=== PATIENT | male | born 1970 | race Caucasian/White ===

== ENCOUNTER 2021-10-10 06:08 | Outpatient (REF) | payer OTHER, SELFPAY ==
[2021-10-10 11:42] LABS: Hematocrit 45.5 % (42.0-52.0); Hemoglobin 15.4 g/dl (14.0-18.0); Mean Corpuscular HGB Conc 33.8 g/dl (31.0-36.0); Mean Corpuscular Hemoglobin 30.9 pg (27.0-33.0); Mean Corpuscular Volume 91.2 fL (80.0-98.0); Mean Platelet Volume 10.8 fL (9.4-12.4); Platelet Count 260 X10*3/uL (160-400); Red Blood Count 4.99 X10*6/uL (4.60-5.80); Red Cell Distribution Width 12.1 % (11.0-16.0)
[2021-10-10 12:12] LABS: Estimated Average Glucose 94 mg/dL; Hemoglobin A1c % 4.9 %
[2021-10-10 12:26] LABS: Alanine Aminotransferase 91 U/L (0-40); Albumin Level 4.4 g/dL (3.5-5.0); Alkaline Phosphatase 75 U/L (39-117); Anion Gap 14 (12-20); Aspartate Amino Transferase 61 U/L (5-37); Bilirubin Total 2.3 mg/dL (0.0-1.0); Blood Urea Nitrogen 13 mg/dL (9-16); Calcium 9.6 mg/dL (8.4-10.2); Carbon Dioxide 26 mmol/L (22-29); Chloride 102 mmol/L (96-108); Cholesterol 219 mg/dL; Estimated Glomerular Filt Rate > 60; Glucose Fasting 83 mg/dL (60-99); HDL Cholesterol 37 mg/dL; LDL Cholesterol Calculated 161 mg/dl; Potassium 4.1 mmol/L (3.3-5.1); Sodium 138 mmol/L (135-145); Triglycerides 105 mg/dL
[2021-10-10 12:48] LABS: TSH reflex Free T4 3.55 uIU/mL (0.32-4.0)
== END 2021-10-10 06:09 | disposition home or self-care (01) ==
LOC: HO.HMGCLDS 06:08
PROVIDERS: Visit Provider Physician Assistant
DX: E03.9 Hypothyroidism, unspecified (principal); Z13.220 Encounter for screening for lipoid disorders; Z13.1 Encounter for screening for diabetes mellitus
CPT/HCPCS: 36415; 80053; 80061; 83036; 84443; 85027

== ENCOUNTER → 2021-10-11 15:45 | Outpatient (REF) | payer OTHER, SELFPAY ==
--- NOTE | ~2021-10-11 | XR_ITS ---
EXAMINATION: XR CERVICAL SPINE CLINICAL INFORMATION: R20.0 - Anesthesia of skin. Cervical tingling. COMPARISON: Radiographs cervical spine 06/17/2014. TECHNIQUE: Cervical spine is imaged in 3 views. FINDINGS: There is normal cervical lordosis. Vertebral bodies are normal in height. There is no cervical vertebral compression, spondylolisthesis, destructive process, or prevertebral soft tissue swelling. The odontoid appears intact. There is interval mild disc narrowing C4-C5 and C5-C6. Anterior vertebral spurring is seen at multiple levels with mild posterior spurring lower cervical spine. There is small incidental focal nuchal ligament mineralization at level of C6. XR/XR cervical spine 3V IMPRESSION: Mild degenerative disc changes C4-C5 and C5-C6.
--- NOTE | ~2021-10-11 | XR_ITS ---
EXAMINATION: XR SHOULDER, LEFT CLINICAL INFORMATION: R20.0 - Anesthesia of skin COMPARISON: None TECHNIQUE: Left shoulder is imaged in 4 views. of the left shoulder. FINDINGS: No fracture or dislocation or destructive process. The glenohumeral joint is unremarkable. The acromioclavicular alignment is normal. There is mild inferior spurring distal left clavicle. There are some calcifications adjacent to the posterior proximal humeral shaft, likely calcific tendinosis or deltoid insertion. XR/XR shoulder LT min 2V IMPRESSION: -Mild inferior spurring acromioclavicular joint. -Small focal calcific tendinosis in region of deltoid insertion upper humerus.
--- NOTE | 2021-10-11 15:50 | ECG_ITS ---
Test Reason : PARASTHESIA SKIN Blood Pressure : / mmHG Vent. Rate : 073 BPM Atrial Rate : 073 BPM P-R Int : 132 ms QRS Dur : 124 ms QT Int : 394 ms P-R-T Axes : 059 081 037 degrees QTc Int : 434 ms Normal sinus rhythm Right bundle branch block Abnormal ECG No previous ECGs available Referred By: Isaias aVlle Electronically Signed By:YENNI JACOBSON
[2021-10-11 16:30] LABS: C Reactive Protein 0.29 mg/dL (< or = 0.50)
[2021-10-11 16:39] LABS: Troponin-I High Sensitivity < 3.5 ng/L (<3.5-35.0)
[2021-10-11 16:55] LABS: Vitamin D 25-OH Total 39.9 ng/mL (>30)
[2021-10-11 17:05] LABS: Erythrocyte Sedimentation Rate 22 MM/HR (0-15)
[2021-10-11 17:06] LABS: Folate 17.1 ng/mL (> or = 4.0); Vitamin B12 677 pg/mL (200-900)
[2021-10-11 17:27] LABS: Prostate Specific Antigen Scr 0.29 ng/mL (<0.05-4.0)
[2021-10-17 21:51] LABS: HSV 1 IgM IFA Negative (Negative); HSV 2 IgM IFA Negative (Negative)
== END ==
LOC: HO.CARD 15:45
PROVIDERS: PCP Internal Medicine; Visit Provider Internal Medicine
DX: Z00.00 Encounter for general adult medical examination without abnormal findings (principal); Z12.5 Encounter for screening for malignant neoplasm of prostate; R20.0 Anesthesia of skin; R20.2 Paresthesia of skin; N50.89 Other specified disorders of the male genital organs; E55.9 Vitamin D deficiency, unspecified
CPT/HCPCS: 36415; 72040; 73030; 82306; 82607; 82746; 84153; 84484; 85652; 86140; 86695; 86696; 93005

== ENCOUNTER → 2021-12-11 15:48 | Outpatient (BNVA) | payer OTHER, SELFPAY | PROVIDERS: PCP Internal Medicine; Referring Provider Internal Medicine; Visit Provider Nurse Practitioner | DX: Z12.11 Encounter for screening for malignant neoplasm of colon (principal) ==

== ENCOUNTER 2022-02-25 08:01 | Outpatient (REF) | payer OTHER, SELFPAY ==
[2022-02-25 12:02] LABS: Alanine Aminotransferase 70 U/L (0-40); Albumin Level 4.3 g/dL (3.5-5.0); Alkaline Phosphatase 76 U/L (39-117); Anion Gap 13 (12-20); Aspartate Amino Transferase 47 U/L (5-37); Bilirubin Total 1.5 mg/dL (0.0-1.0); Blood Urea Nitrogen 11 mg/dL (9-16); Calcium 9.2 mg/dL (8.4-10.2); Carbon Dioxide 29 mmol/L (22-29); Chloride 105 mmol/L (96-108); Cholesterol 170 mg/dL; Estimated Glomerular Filt Rate > 60; Glucose Fasting 102 mg/dL (60-99); HDL Cholesterol 38 mg/dL; LDL Cholesterol Calculated 100 mg/dl; Potassium 4.5 mmol/L (3.3-5.1); Sodium 142 mmol/L (135-145); Triglycerides 161 mg/dL
[2022-02-25 12:06] LABS: Free T4 (Free Thyroxine) 0.99 ng/dL (0.71-1.85); Thyroid Stimulating Hormone 1.52 uIU/mL (0.32-4.0)
== END 2022-02-25 08:02 | disposition home or self-care (01) ==
LOC: HO.HMGCLDS 08:01
PROVIDERS: PCP Internal Medicine; Visit Provider Internal Medicine
DX: E78.00 Pure hypercholesterolemia, unspecified (principal); E03.9 Hypothyroidism, unspecified
CPT/HCPCS: 36415; 80053; 80061; 84439; 84443

== ENCOUNTER 2022-05-29 06:22 | Outpatient (REF) | payer OTHER, SELFPAY ==
[2022-05-29 12:52] LABS: TSH reflex Free T4 2.52 uIU/mL (0.32-4.0)
[2022-05-29 13:15] LABS: Alanine Aminotransferase 102 U/L (0-40); Albumin Level 4.5 g/dL (3.5-5.0); Alkaline Phosphatase 74 U/L (39-117); Anion Gap 17 (12-20); Aspartate Amino Transferase 49 U/L (5-37); Bilirubin Total 2.2 mg/dL (0.0-1.0); Blood Urea Nitrogen 12 mg/dL (9-16); Calcium 9.5 mg/dL (8.4-10.2); Carbon Dioxide 23 mmol/L (22-29); Chloride 103 mmol/L (96-108); Cholesterol 212 mg/dL; Estimated Glomerular Filt Rate > 60; Glucose Fasting 91 mg/dL (60-99); HDL Cholesterol 45 mg/dL; LDL Cholesterol Calculated 152 mg/dl; Potassium 3.8 mmol/L (3.3-5.1); Sodium 139 mmol/L (135-145); Total Protein 6.9 g/dL (6.5-8.0); Triglycerides 76 mg/dL
== END 2022-05-29 06:23 | disposition home or self-care (01) ==
LOC: HO.HMGCLDS 06:22
PROVIDERS: PCP Internal Medicine; Visit Provider Nurse Practitioner Family
DX: E03.9 Hypothyroidism, unspecified (principal); E78.00 Pure hypercholesterolemia, unspecified; R79.89 Other specified abnormal findings of blood chemistry
CPT/HCPCS: 36415; 80053; 80061; 84443

== ENCOUNTER → 2022-08-26 13:44 | Outpatient (BNVA) | payer OTHER, SELFPAY | PROVIDERS: PCP Internal Medicine; Referring Provider Internal Medicine; Visit Provider Internal Medicine | DX: I45.10 Unspecified right bundle-branch block (principal) | CPT/HCPCS: 93005 ==

== ENCOUNTER → 2022-09-03 14:45 | Outpatient (REF) | payer OTHER, SELFPAY ==
--- NOTE | 2022-09-03 14:49 | CA_ITS ---
Transthoracic Echocardiogram Patient (Last, First, Middle): Gary Mcintosh, Gender: Male Date of : 1970 Age: 52 Procedure Date: 09/03/2022 Procedure Type: Transthoracic Echocardiogram Location: OP Height: 160.02 cm Weight: 65.77 kg BSA: 1.69 m2 Heart Rate: bpm BP: 12 / 66 mmHg Construction Rep: Referring MD: Taurus Coornel MD Pattern Wheel Maker: Justin Prasad MD Symptoms: I45.10 - Unspecified right bundle-branch block Study Quality: Adequate ECG Rhythm: Sinus Conclusions: - 1. Normal LV systolic function with impaired relaxation filling pattern 2. Normal cardiac valvular Doppler 3. Normal RV systolic pressure 4. No gross pericardial effusion Findings Left Ventricle Normal left ventricular size, thickness, and systolic function. The visually estimated ejection fraction is between 60-65%. Spectral Doppler is indicative of an impaired relaxation filling pattern. E/E prime ratio is between 8 and 15 consistent with indeterminate filling pressures. Right Ventricle Normal right ventricular cavity size and systolic function. Atria Both atria are normal in size. Aortic Valve Normal aortic valve structure and function. There is no aortic valve stenosis. There is no aortic valve regurgitation. Mitral Valve Normal mitral valve structure and function. There is trace mitral valve regurgitation. There is no mitral valve stenosis. Pulmonic Valve The pulmonic valve is likely normal. Tricuspid Valve Normal tricuspid valve structure. There is trace tricuspid valve regurgitation. The right ventricular systolic pressure is normal. The right ventricular systolic pressure is 26 mmHg. Normal right atrial pressure. There is no evidence of pulmonary hypertension. Great Vessels All visible segments of the aorta are normal in size. The pulmonary artery was not well visualized. Venous The inferior vena cava is normal in size and collapses greater than 50% with inspiration. Pericardium/Pleural There is no evidence of pericardial effusion. Prior Study Comparison No prior study available for comparison. Measurements 2D Linear Measurements IVSd: 1.08 0.6-0.9/0.6-1.0 cm LVIDd: 3.70 3.9-5.3/4.2-5.9 cm LVIDd Index: 2.19 2.4-3.2/2.2-3.1 cm/m2 LVIDs: 2.58 2.0-3.6 cm LVPWd: 1.16 0.7-1.1 cm Ao Root: 3.20 2.1-3.5 cm LA Diam: 3.20 2.7-3.8/3.0-4.0 cm LAIDs Index: 1.89 1.5-2.3 cm/m2 LV Mass: 165.29 67-162/88-224 g LV Mass Index: 97.80 43-95/49-115 g/m2 LVOT Diam: 2.00 3.0+(-)1.3 cm 2D Systolic Function EF 4C: 66.40 >55% EF 2C: 62.90 >55% EF BiP: 63.90 >55% Mitral Valve MV Pk E: 0.78 MV PK A: 1.22 MV Decel Time: 135.00 E/A: 0.60 E'Lateral: 6.31 E'Medial: 6.74 E/E' Med: 11.50 E/E' Lat: 12.30 PHT: 40.00 MVA PHT: 5.50 Decel Irwin: 5.76 Aortic Valve AoV Pk Leon: 1.98 AoV Mn Leon: 1.23 AoV VTI: 0.36 AoV Pk Grad: 16.00 Aov Mn Grad: 7.00 SAMMIE Cont.VTI: 2.32 LVOT LVOT Pk Leon: 1.43 LVOT Mn Leon: 0.87 LVOT VTI: 0.26 LVOT Pk Grad: 8.00 LVOT Mn Grad: 4.00 LVOT Diam: 2.00 LVOT Area: 3.14 Diastolic Function MV Pk E: 0.78 MV Pk A: 1.22 E/A: 0.60 E'Medial: 6.74 E/E' Med: 11.50 E' Laterial: 6.31 E/E' Lat: 12.30 Right Ventricle TAPSE (mm): 24.90 TVS' Leon: 12.20 Tricuspid Valve TR Pk Leon: 2.40 TR Pk Grad: 23.00 RA Press: 3.00 RVSP: 26.00 Great Vessels Aorta Ao Root-2D: 3.20 2.0-3.7 cm Ao Asc: 3.10 2.1-3.4 cm Pulmonary Valve PV Pk Leon: 1.31 Peak PV Grad: 7.00 Updated in Other Vendor System with Status of Final Justin Prasad MD electronically signed on 09/05/2022 10:46:08 AM with status of Final
== END ==
LOC: HO.CARD 14:45
PROVIDERS: PCP Internal Medicine; Visit Provider Internal Medicine
DX: I45.10 Unspecified right bundle-branch block (principal)
CPT/HCPCS: 93306

== ENCOUNTER 2022-09-30 10:11 | Day surgery (SDC) | payer OTHER, SELFPAY ==
--- NOTE | 2022-09-30 10:09 | HO.ANESPROP2 ---
[facility] Active Problems Active Problems: All Active Problems (Updated 09/25/22 @ 16:23 by Maria A Dailey RN) Annual physical exam (Acute) Left upper extremity numbness (Acute) Paresthesia of left upper extremity (Acute) Genital lesion, male (Acute) Vitamin D deficiency (Acute) Colon cancer screening (Acute) Family history of polyps in the colon (Acute) Right bundle branch block (Acute) Hypertension (Acute) Elevated blood pressure reading (Acute) Incomplete RBBB (Acute) Elevated LFTs (Acute) Overweight (BMI 25.0-29.9) (Acute) Acquired hypothyroidism (Acute) Pure hypercholesterolemia (Acute) Past Medical History Medical History (Updated 09/25/22 @ 16:23 by Maria A Dailey RN) Acquired hypothyroidism Elevated LFTs Overweight (BMI 25.0-29.9) Pure hypercholesterolemia RBBB Family History Family History Father Liver cancer Mother Diabetes Family history of problems with anesthesia: No Surgical History Surgical History No pertinent past surgical history History of Problems with Anesthesia: No Social History Social History Housing: House Alcohol intake: current Alcohol intake frequency: a few times a week Patient Tobacco Use Status: Never used Tobacco Tobacco use type: Cigarette e-Cigarette/Vaping Use: Never Used Use of substances other than those prescribed or required for medical reasons: Yes Substance Use Type: Marijuana Substance Use Type Other:: smoking Substance Use Frequency: Daily Are you DNR?: No Advance Directives: No Advance Directives Information Provided: Yes service: No Current occupational status: employed Cognitive needs: No Hearing needs: No Vision needs: Yes Meds Allergies Allergy/AdvReac Type Severity Reaction Status Date / Time No Known Allergies Allergy Verified 09/26/22 10:45 [No Known Allergies*] Active Medications: Current Medications Lactated Ringer's (Lr) 1,000 mls @ 50 mls/hr IVCONT .Q20H [facility] Home Medications Medication Instructions Recorded Confirmed Last Taken Type albuterol sulfate 90 mcg/actuation 2 puff inhalation Q6H PRN Wheezing 07/29/20 09/25/22 Unknown History aerosol inhaler multivit with minerals-iron 18 1 tab PO DAILY 12/11/21 09/25/22 Unknown History mg-folic ac 400 mcg-vit K 25 mcg tablet (Adults Multivitamin) Exam Exam Date and Time: September 30, 2022 [id number] Airway Mallampati Class: II TM Dist: >3cm Neck ROM: Full Heart: rrr Lungs: cta Assessment and Plan Assessment Anesthesia Assessment: Anesthesia Plan Discussed and Chart Reviewed Final Anesthetic Review Family History of Problems with Anesthesia: No History of Problems with Anesthesia: No NPO: Yes ASA Class: II Final Preanesthetic Review: No Changes in Pt Med Stat, Meds/Allgs Chart Reviewed and Consent Obtained/Reviewed Patient Risk: Intermediate Procedure Risk: Intermediate Anesthetic Plan Anesthetic Plan: MAC: Disposition: Standard PACU
[2022-09-30 10:45] VITALS: BMI 25.7
--- NOTE | 2022-09-30 10:59 | MHC.SHP ---
Pre-Procedural Eval Section A Date of Service: 09/30/22 Section B Chief Complaint: Family history of colonic polyps,screening Relevant Family History (Specify if Yes): Yes Relevant Social History: None Present Medications: see Short Stay Collaborative assessment Medical History: Significant History (Acquired hypothyroidism Elevated LFTs Overweight (BMI 25.0-29.9) Pure hypercholesterolemia Vitamin D deficiency) History of Previous Operations: No relevant previous surgery Allergies: Allergies Allergy/AdvReac Type Severity Reaction Status Date / Time No Known Allergies Allergy Verified 09/26/22 10:45 [No Known Allergies*] Review of Systems Sugical H&P ROS: Negative: Constitution, Cardiovascular, Respiratory and Gastrointestinal Exam Surgical H&P Exam: Normal: Heart, Normal: Lungs, Normal: Extremities and Normal: Abdomen Plan Diagnosis/Plan: Unchanged I have reviewed the history and physical and performed a pertinent physical examination on my patient. No changes have occurred unless specified. Time Spent With Patient Time: Total time managing care of this patient today ____ minutes.
[2022-09-30 11:00] VITALS: BP 132/82; PULSE 73; RESP 16; TEMP 36.6; O2SAT 98
--- NOTE | 2022-09-30 11:04 | P.BOP_ITS ---
Brief Operative Note Date of Service: 09/30/22 Pre-op diagnosis: Colon cancer screening, family history of colon polyps Post-op diagnosis: other (Colon polyps, diverticulosis, hemorrhoids) Procedure: COLONOSCOPY TILL CECUM WITH BIOPSIES AND SNARE POLYPECTOMY Surgeon: Alison Lau MD Anesthesia: MAC Was an Leadership Development Manager used for this Procedure?: Yes Leadership Development Manager: Flip Patterson Estimated blood loss (mL): 0 Pathology: other (A) Polyp Sigmoid Colon B) Polyp Sigmoid Colon 25cm) Condition: stable Disposition: PACU
--- NOTE | 2022-09-30 11:04 | W.PM.OPN ---
Operative Note Operative Note Date of Service: 09/30/22 Narrative: COLONOSCOPY TILL CECUM WITH BIOPSIES AND SNARE POLYPECTOMY Indication:? Colon cancer screening Endoscopist:? Alison Lau MD Anesthesia Provider:?Dr Gomez Anesthesia type:?MAC Consent: Indications for the procedure and potential complications of bleeding, perforation, reaction to medications and missed diagnosis were discussed with the patient and informed consent was obtained. Instrument: Olympus PCF H 190 L variable stiffness pediatric colonoscope Monitoring: Vital signs and clinical assessment, intermittent blood pressure monitoring, continuous EKG monitoring, Pulse oximetry and Carbon Dioxide monitoring were done throughout the procedure. Please see anesthesia flowsheet. Colon withdrawl time was 17 minutes. Procedure: The patient was placed in the left lateral decubitis position and pre-procedure medications were administered. After a digital rectal examination of the ano-rectum, the video colonoscope was inserted into the rectum and advanced through the colon to the cecum. The colonoscope was slowly withdrawn in a retrograde panoramic fashion and the colon mucosa was carefully examined including a retroflexed view of the rectum. Findings and interventions are described below. Procedure Difficulty: Without difficulty Findings: Terminal Ileum: Not evaluated Cecum: Normal Ascending Colon: Moderate scattered diverticulosis throughout the colon Transverse Colon: Moderate scattered diverticulosis throughout the colon Descending Colon: Moderate scattered diverticulosis throughout the colon Sigmoid Colon: A 3-4 mm diminutive appearing polyp removed with a cold biopsy. A 7 to 8 mm diminutive appearing polyp at 25 cm removed with a cold snare. Moderate diverticulosis Rectum: Normal Ano-rectum: Small internal hemorrhoids Colon preparation: Excellent Impression and Post Procedure Diagnosis: Colonoscopy Findings: Two small polyps removed Moderate diverticulosis seen in the entire colon Small hemorrhoids on retroflexed exam. Plan: Await pathology results Patient has an appointment on 10/15/22 in the GI Clinic with Ashlie Melgoza NP . Repeat Colonoscopy interval based on path results - in 5 years if polyps are adenomatous and due to family hx of colon polyps. Above findings were reviewed with the patient and colon polyps and diverticulosis handouts were given in the discharge area
[2022-09-30] MEDS: Lactated Ringers 1,000 ML 50 ML IVCONT (11:09)
[2022-09-30 11:43] VITALS: BP 91/55; PULSE 60; RESP 15; TEMP 36.2; O2SAT 98
[2022-09-30 11:58] VITALS: BP 120/91; PULSE 60; RESP 16; TEMP 36.2; O2SAT 99
== END 2022-09-30 12:46 | disposition home or self-care (01) ==
PROVIDERS: PCP Internal Medicine; Visit Provider Internal Medicine Gastroenterology
PROC: 0DJD8ZZ Inspection of Lower Intestinal Tract, Via Natural or Artificial Opening Endoscopic (ICD-10-PCS; CPT 45378; principal; 2022-09-30 11:00)
DX: Z12.11 Encounter for screening for malignant neoplasm of colon (principal); Z83.71 Family history of colonic polyps; K63.5 Polyp of colon; K57.30 Diverticulosis of large intestine without perforation or abscess without bleeding; K64.8 Other hemorrhoids; E78.00 Pure hypercholesterolemia, unspecified; E03.9 Hypothyroidism, unspecified; E55.9 Vitamin D deficiency, unspecified; I45.10 Unspecified right bundle-branch block; R79.89 Other specified abnormal findings of blood chemistry; E66.9 Obesity, unspecified; Z68.25 Body mass index [BMI] 25.0-25.9, adult; Z79.899 Other long term (current) drug therapy; F12.90 Cannabis use, unspecified, uncomplicated
CPT/HCPCS: 45385; 45380; 88305

== ENCOUNTER 2022-12-06 06:06 | Outpatient (REF) | payer OTHER, SELFPAY ==
[2022-12-06 12:12] LABS: Alanine Aminotransferase 71 U/L (0-40); Albumin Level 4.1 g/dL (3.5-5.0); Alkaline Phosphatase 65 U/L (39-117); Anion Gap 10 (12-20); Aspartate Amino Transferase 49 U/L (5-37); Bilirubin Total 1.6 mg/dL (0.0-1.0); Blood Urea Nitrogen 12 mg/dL (9-16); Calcium 8.9 mg/dL (8.4-10.2); Carbon Dioxide 27 mmol/L (22-29); Chloride 107 mmol/L (96-108); Cholesterol 184 mg/dL; Estimated Glomerular Filt Rate > 60; Glucose Fasting 87 mg/dL (60-99); HDL Cholesterol 39 mg/dL; LDL Cholesterol Calculated 127 mg/dl; Sodium 140 mmol/L (135-145); Total Protein 6.3 g/dL (6.5-8.0); Triglycerides 94 mg/dL
[2022-12-06 12:19] LABS: Free T4 (Free Thyroxine) 1.03 ng/dL (0.71-1.85); Thyroid Stimulating Hormone 1.96 uIU/mL (0.32-4.0); Vitamin D 25-OH Total 31.2 ng/mL (>30)
== END 2022-12-06 06:07 | disposition home or self-care (01) ==
LOC: HO.HMGCLDS 06:06
PROVIDERS: PCP Internal Medicine; Visit Provider Internal Medicine
DX: E03.9 Hypothyroidism, unspecified (principal); E55.9 Vitamin D deficiency, unspecified; E78.00 Pure hypercholesterolemia, unspecified
CPT/HCPCS: 36415; 80053; 80061; 82306; 84439; 84443

== ENCOUNTER 2023-12-05 06:12 | Outpatient (REF) | payer OTHER, SELFPAY ==
[2023-12-05 10:35] LABS: Appearance Urine Turbid; Color Urine Yellow; Glucose Urine UA Negative (Negative); Leukocyte Esterase Urine Negative (Negative); Nitrite Urine Negative (Negative); PH 5.5 (5.0-9.0); Urine Blood Negative (Negative); Urine Ketones Negative (Negative); Urine Protein Negative (Neg-Trace)
[2023-12-05 10:39] LABS: MANUAL DIFF FLAG NO
[2023-12-05 10:54] LABS: Basophils Absolute Auto 0.1 X10*3/uL (0.0-0.2); Eosinophils Absolute Auto 0.4 X10*3/uL (0.0-0.4); Eosinophils Percent Auto 5.3 % (0-4); Hematocrit 44.6 % (42.0-52.0); Hemoglobin 15.3 g/dl (14.0-18.0); Imm Gran Abs Auto 0.02 X10*3/uL (0.00-0.03); Imm Gran Pct Auto 0.3 % (0.0-0.4); Lymphocytes Absolute Auto 2.7 X10*3/uL (1.2-4.9); Lymphocytes Percent Auto 39.5 % (20-40); Mean Corpuscular HGB Conc 34.3 g/dl (31.0-36.0); Mean Corpuscular Hemoglobin 30.5 pg (27.0-33.0); Mean Platelet Volume 11.6 fL (9.4-12.4); Monocytes Absolute Auto 0.6 X10*3/uL (0.1-1.2); Monocytes Percent Auto 8.6 % (2-11); Neutrophils Absolute Auto 3.1 x10*3/uL (2.0-8.3); Neutrophils Percent Auto 45.3 % (45-73); Platelet Count 227 X10*3/uL (160-400); Red Blood Count 5.01 X10*6/uL (4.60-5.80); Red Cell Distribution Width 12.1 % (11.0-16.0); White Blood Count 6.8 X10*3/uL (4.8-10.8)
[2023-12-05 11:22] LABS: Prostate Specific Antigen Scr 0.37 ng/mL (<0.05-4.0)
[2023-12-05 11:25] LABS: Alanine Aminotransferase 89 U/L (0-40); Albumin Level 4.3 g/dL (3.5-5.0); Alkaline Phosphatase 60 U/L (39-117); Anion Gap 13 (12-20); Aspartate Amino Transferase 56 U/L (5-37); Bilirubin Total 0.8 mg/dL (0.0-1.0); Blood Urea Nitrogen 13 mg/dL (9-16); Calcium 9.6 mg/dL (8.4-10.2); Carbon Dioxide 26 mmol/L (22-29); Chloride 106 mmol/L (96-108); Cholesterol 209 mg/dL (<200); Estimated Glomerular Filt Rate > 60; Free T4 (Free Thyroxine) 1.01 ng/dL (0.71-1.85); Glucose Fasting 91 mg/dL (60-99); HDL Cholesterol 39 mg/dL (>40); LDL Cholesterol Calculated 138 mg/dL (<100); Potassium 4.3 mmol/L (3.3-5.1); Sodium 141 mmol/L (135-145); Thyroid Stimulating Hormone 3.86 uIU/mL (0.32-4.0); Total Protein 7.3 g/dL (6.5-8.0); Triglycerides 161 mg/dL (<150); Vitamin D 25-OH Total 68.3 ng/mL (>30)
== END 2023-12-05 06:13 | disposition home or self-care (01) ==
LOC: HO.HMGCLDS 06:12
PROVIDERS: PCP Internal Medicine; Visit Provider Internal Medicine
DX: Z00.00 Encounter for general adult medical examination without abnormal findings (principal); Z12.5 Encounter for screening for malignant neoplasm of prostate; I10 Essential (primary) hypertension; E78.00 Pure hypercholesterolemia, unspecified; E03.9 Hypothyroidism, unspecified; E55.9 Vitamin D deficiency, unspecified; R30.0 Dysuria
CPT/HCPCS: 36415; 80053; 80061; 81003; 82306; 84153; 84439; 84443; 85025

== ENCOUNTER 2023-12-10 15:56 | Outpatient (AMB) | payer OTHER, SELFPAY ==
[2023-12-10 15:56] VITALS: BP 152/96; PULSE 72; O2SAT 97; BMI 27.1
--- NOTE | 2023-12-10 15:56 | MHC.PC.OV ---
Vital Signs 12/10/23 15:56 12/10/23 16:46 Height 5 ft 3 in Weight 153 lb 0.4 oz BMI 27.1 BP 152/96 H 140/90 H Blood Pressure Location Lt brachial Lt brachial Position Sitting Sitting Pulse 72 Pulse Source Pulse Oximeter Pulse Oximetry (%) 97 Oxygen Delivery Method Room Air Intake Visit Reasons: P.E Intake Note: Patient is here today for a physical. 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: No Allergies No Known Allergies [No Known Allergies*] Allergy (Verified 12/10/23 17:24) Medication List - Last Reconciled 12/10/23 by Isaias Valle MD albuterol sulfate 90 mcg/actuation 2 puffs inhalation Q6H PRN blood pressure monitor As directed cholecalciferol (vitamin D3) 25 mcg PO DAILY levothyroxine 25 mcg PO QAM lisinopril 10 mg PO DAILY [id number]-vit K 18 mg iron-400 mcg-25 mcg (Adults Multivitamin) 1 tab PO DAILY triamcinolone acetonide 0.05% 1 appl topical TID PRN Tobacco use date assessed: 12/10/23 Dental Screening Dental Screen Date: 12/10/23 Did you have a dental visit in the last 12 months?: Yes Did you have a dental problem in the last 6 months where you did not have access to dental care?: No Was dental information given to patient?: Patient has dentist HPI P.E HPI Details Patient comes in today for his annual physical examination States that he feels okay He denies any headaches or dizziness Denies any chest pains, no SOB No nausea/vomiting, no abdominal pain No change in bowel habits noted He denies any acute urinary symptoms Had his follow up labs done a few days ago - to discuss his results He had his screening colonoscopy done last year in 09/2022 - was recommended to get repeat colonoscopy in 5 years due to family history PFSH Medical History (Updated 12/09/22 @ 18:29 by Isaias Valle MD) RBBB Elevated LFTs Overweight (BMI 25.0-29.9) Acquired hypothyroidism Pure hypercholesterolemia Surgical History (Updated 12/09/22 @ 18:31 by Isaias Valle MD) Hx of colonoscopy (~09/2022) Family History Father Liver cancer Mother Diabetes Social History Housing: House Alcohol intake: current Alcohol intake frequency: a few times a week Patient Tobacco Use Status: Never used Tobacco Tobacco use type: Cigarette e-Cigarette/Vaping Use: Never Used Substance Use Type: Marijuana service: No Current occupational status: employed Cognitive needs: No Hearing needs: No Vision needs: Yes Questionnaire PHQ-9 Over the last 2 weeks, how often have you been bothered by any of the following problems? 1. Little interest or pleasure in doing things: not at all 2. Feeling down, depressed, or hopeless: not at all 3. Trouble falling or staying asleep, or sleeping too much: not at all 4. Feeling tired or having little energy: not at all 5. Poor appetite or overeating: not at all 6. Feeling bad about yourself - or that you are a failure or have let yourself or your family down: not at all 7. Trouble concentrating on things, such as reading the newspaper or watching television: not at all 8. Moving or speaking so slowly that other people could have noticed. Or the opposite - being so fidgety or restless that you have been moving around a lot more than usual: not at all 9. Thoughts that you would be better off or of hurting yourself in some way: not at all Total score: 0 Depression Screening Interpretation: Negative Depression Screening Done: Yes 14702 - PHQ-9 Billing: Yes Source: Developed by Drs. Flip Hoang, Charity Flores, Bryson Gallegos and colleagues, with an educational sydni from [email or web address]. Thrive Questionnaire Date Thrive assessed: 12/10/23 I am a: Patient What is your living situation today?: I have a steady place to live Within the past 12 months, did the food you bought not last and you didn't have the money to get more?: Never true Within the past 12 months, did you worry whether your food would run out before you got money to buy more?: Never true Do you have trouble paying for medicines?: No Do you have trouble getting transportation to medical appointments?: No Do you have trouble paying your heating and electricity bill?: No Do you have trouble taking care of your child, family member or friend?: No Do you have trouble with day-to-day activities such as bathing, preparing meals, shopping, managing finances, etc.?: No Are you currently unemployed and looking for a job?: No Are you interested in more education?: No Please select the resources that you would like help with: None Currently or been in a relationship where the following occur: no concerns reported THRIVE Score: 0 AUDIT C Alcohol Use Questionnaire (AUDIT-C) 1. How often do you have a drink containing alcohol?: Monthly or less 2. How many drinks containing alcohol do you have on a typical day when you are drinking?: 1 or 2 3. How often do you have six or more drinks on one occasion?: Never Total Score: 1 Score Reviewed/Action Taken: Yes DANIEL-7 AMB Questionnaire DANIEL-7 Date DANIEL - 7 assessed: 12/10/23 Feeling nervous, anxious, or on edge: 0 = Not at all Not being able to stop or control worryin = Not at all Worrying too much about different things: 0 = Not at all Trouble relaxin = Not at all Being so restless that it is hard to sit still: 0 = Not at all Becoming easily annoyed or irritable: 0 = Not at all Feeling afraid as if something awful might happen: 0 = Not at all Total DANIEL-7 score (0-4 normal; 5-9 mild; 10-14 moderate; 15-21 severe): 0 Source: Developed by Drs. Flip Hoang, Charity Flores, Bryson Gallegos and colleagues, with an educational sydni from [email or web address]. DANIEL-7 Assessment Billing DANIEL-7 Assessment Tool: DANIEL-7 Assessment 82795 Review of Systems Const Denies chills, Denies fatigue, Denies fever(s), Denies headache(s), Denies malaise and Denies weakness Eyes Denies blurry vision, Denies change in vision, Denies irritation and Denies itchy eyes ENT Denies dysphagia, Denies dizziness, Denies otalgia, Denies headache(s), Denies nasal congestion, Denies neck pain, Denies odynophagia and Denies sore throat Card Denies chest pain, Denies rapid heart rate, Denies irregular heart rhythm, Denies palpitations and Denies dyspnea Resp Denies chest congestion, Denies cough, Denies dyspnea and Denies wheezing GI Denies abdominal pain, Denies bloating, Denies constipation, Denies dysphagia, Denies heartburn, Denies diarrhea, Denies nausea, Denies odynophagia and Denies vomiting Denies hematuria, Denies difficulty urinating, Denies dysuria, Denies urinary frequency and Denies urinary urgency Musc Denies back pain, Denies arthralgias, Denies joint swelling, Denies muscle weakness and Denies neck pain Skin/Breast Denies change in pigmentation, Denies lesions, Denies rash and Denies unusual bruising Neuro Denies dizziness, Denies headache(s), Denies paresthesias and Denies weakness Endo Denies fatigue and Denies palpitations Aller/Immun Denies itchy eyes and Denies wheezing Physical exam (Primary Care) Vital Signs: Last Vital Signs Pulse 72 12/10/23 15:56 BP 140/90 H 12/10/23 16:46 Pulse Ox 97 12/10/23 15:56 Oxygen Delivery Method Room Air 12/10/23 15:56 BMI result Body Mass Index 27.1 Tobacco/Smoking Status: Tobacco use Status Tobacco use date assessed 12/10/23 12/10/23 15:58 Patient Tobacco Use Status Never used Tobacco 12/10/23 15:58 Tobacco use type Cigarette 12/10/23 15:58 e-Cigarette/Vaping Use Never Used 12/10/23 15:58 PHQ-9: PHQ-9 Score PHQ-9: Total score 0 12/10/23 17:30 Depression Screening Interpretation: Negative Thrive Assessment: Date of Thrive Assessment Date Thrive assessed 12/10/23 12/10/23 15:58 Currently or been in a relationship where the following occur: no concerns reported Const General: no acute distress, alert and awake Orientation/consciousness: patient oriented x3 HENMT Head: Yes normocephalic and Yes atraumatic Ears: external ears normal, TM's normal bilaterally and EAC's normal General nose exam: No nasal discharge present Face and sinus: Yes normal facial exam and Yes sinuses nontender Teeth and gingiva: dentition normal Throat: Yes posterior oropharynx normal and Yes tonsils normal (no TP congestion) Eyes Eyelids: Yes eyelids normal Conjunctivae: conjunctivae normal Pupils: Equal, round and reactive pupils present EOM: EOMs intact bilaterally Neck Neck: Yes no lymphadenopathy and Yes supple Thyroid: Thyroid normal Resp Auscultation: clear to auscultation bilaterally, no rales and no wheezes Cardio Rate: regular rate Rhythm: regular rhythm Heart sounds: no murmurs GI Palpation (GI): Soft to palpation, nontender and No hepatosplenomegaly present Auscultation: normal bowel sounds General: Yes no CVA tenderness Back/Spine/Pelvis Back: no CVA tenderness Thoracic/Lumbar Spine: thoracic and lumbar spine normal to inspection Skin Lesions: no lesions Rashes: no rashes Neuro General: patient oriented x3, moves all extremities, no focal motor deficits and CN's II-XI intact bilaterally Cranial nerves: Yes Equal, round and reactive pupils present Cognition (Neuro): normal cognition Gait exam (Neuro): Normal gait present Extrem General: Yes no clubbing, cyanosis or edema Results Reviewed Results Reviewed: Laboratory Tests 12/05/23 12/05/23 06:20 06:23 WBC 6.8 Hgb 15.3 Hct 44.6 Plt Count 227 Sodium 141 Potassium 4.3 Creatinine 0.94 Estimated GFR > 60 Fasting Glucose 91 Calcium 9.6 D AST 56 H ALT 89 H Triglycerides 161 H Cholesterol 209 H LDL Cholesterol, Calc 138 H HDL Cholesterol 39 L PSA Screen 0.37 25-OH Vitamin D Total 68.3 TSH 3.86 Free T4 1.01 Ur Specific [place] 1.020 Urine Protein Negative Urine Glucose (UA) Negative Urine Blood Negative Urine Nitrite Negative Ur Leukocyte Esterase Negative Assessment and Plan Assessment & Plan (1) Annual physical exam: Code(s): Z00.00 - Encounter for general adult medical examination without abnormal findings Plan: Results of his labs done a few days ago reviewed and discussed with patient He is up-to-date with his cancer screening - colonoscopy was done last year in September 2022 and he is recommended to get a repeat colonoscopy in 5 years (2) Pure hypercholesterolemia: Code(s): E78.00 - Pure hypercholesterolemia, unspecified Plan: Advised that his cholesterol levels are still high on his recent labs and they have increased again slightly from previous Reinforced low cholesterol diet - patient would like to continue with diet modification alone at this time Will recheck his labs and fasting lipids in 6 months for follow up (3) Acquired hypothyroidism: Code(s): E03.9 - Hypothyroidism, unspecified Plan: TFTs were normal on his recent labs Continue Levothyroxine 25 mcg QD (4) Elevated LFTs: Code(s): R79.89 - Other specified abnormal findings of blood chemistry Plan: Patient is advised that his LFTs are still elevated and have again increased slightly from before on his recent labs Hepatitis profile checked back in 2013 were negative Reinforced abstinence; have also advised patient to avoid taking any medications containing Acetaminophen as much as possible Will recheck his LFTs in 6 months for follow-up Will again need to consider getting an abdominal US for further evaluation if his LFTs continue to stay high (5) Elevated blood pressure reading: Code(s): R03.0 - Elevated blood-pressure reading, without diagnosis of hypertension Plan: Reinforced low sodium diet Advised that his blood pressure is high again today - is likely related to his recent weight gain Continue Lisinopril 10 mg QD for now Patient reminded to continue monitoring his blood pressure regularly (6) Vitamin D deficiency: Code(s): E55.9 - Vitamin D deficiency, unspecified Plan: Corrected - continue Vitamin D3 1000 units QD (7) Dermatitis: Code(s): L30.9 - Dermatitis, unspecified Plan: Continue Triamcinolone acetonide 0.05% ointment apply BID to TID to affected areas PRN (8) Overweight (BMI 25.0-29.9): Code(s): E66.3 - Overweight Plan: Reinforced diet/exercise as tolerated/lose weight Plan Follow up in 6 months Orders: Orders Lipid Panel 6 Months E78.00 - Pure hypercholesterolemia, unspecified Free T4 (Free Thyroxine) 6 Months E03.9 - Hypothyroidism, unspecified Comprehensive Scro[place]ins. Panel Fast 6 Months E78.00 - Pure hypercholesterolemia, unspecified Thyroid Stimulating Hormone 6 Months E03.9 - Hypothyroidism, unspecified Coding Level of Care Code Est Pt Prev Care 40-64y([id number]) Diagnoses Annual physical exam Z00.00 Pure hypercholesterolemia E78.00 Acquired hypothyroidism E03.9 Elevated LFTs R79.89 Elevated blood pressure reading R03.0 Vitamin D deficiency E55.9 Dermatitis L30.9 Overweight (BMI 25.0-29.9) E66.3 Additional Codes DANIEL-7 Assessment Billing - DANIEL-7 Assessment Tool: DANIEL-7 Assessment [id number] ([id number])
[2023-12-10 16:46] VITALS: BP 140/90
== END 2023-12-10 16:53 | disposition home or self-care (01) ==
PROVIDERS: PCP Internal Medicine; Visit Provider Internal Medicine
DX: Z00.00 Encounter for general adult medical examination without abnormal findings (principal); E78.00 Pure hypercholesterolemia, unspecified; E03.9 Hypothyroidism, unspecified; R79.89 Other specified abnormal findings of blood chemistry; R03.0 Elevated blood-pressure reading, without diagnosis of hypertension; E55.9 Vitamin D deficiency, unspecified; L30.9 Dermatitis, unspecified; E66.3 Overweight
CPT/HCPCS: 99396

== ENCOUNTER 2025-06-17 06:01 | Outpatient (REF) | payer OTHER, SELFPAY ==
[2025-06-17 10:04] LABS: MANUAL DIFF FLAG NO
[2025-06-17 10:14] LABS: Appearance Urine Clear; Glucose Urine UA Negative (Negative); PH 5.5 (5.0-9.0); Specific Gravity - Urine 1.020 (1.005-1.025)
[2025-06-17 10:15] LABS: Hematocrit 46.1 % (42.0-52.0); Hemoglobin 15.9 g/dl (14.0-18.0); Imm Gran Abs Auto 0.02 X10*3/uL (0.00-0.03); Imm Gran Pct Auto 0.2 % (0.0-0.4); Lymphocytes Absolute Auto 2.6 X10*3/uL (1.2-4.9); Mean Corpuscular HGB Conc 34.5 g/dl (31.0-36.0); Mean Corpuscular Hemoglobin 31.1 pg (27.0-33.0); Mean Corpuscular Volume 90.0 fL (80.0-98.0); NRBC Abs Auto 0.000 X10*3/uL (0.0-0.012); NRBC Pct Auto 0.0 /100WBC (0.0-0.2); Platelet Count 196 X10*3/uL (160-400); Red Blood Count 5.12 X10*6/uL (4.60-5.80); White Blood Count 8.8 X10*3/uL (4.8-10.8)
[2025-06-17 11:01] LABS: Alanine Aminotransferase 102 U/L (0-40); Albumin Level 4.7 g/dL (3.5-5.0); Alkaline Phosphatase 63 U/L (39-117); Anion Gap 10 (12-20); Aspartate Amino Transferase 63 U/L (5-37); Blood Urea Nitrogen 14 mg/dL (9-16); Calcium 9.3 mg/dL (8.4-10.2); Carbon Dioxide 29 mmol/L (22-29); Chloride 105 mmol/L (96-108); Cholesterol 213 mg/dL (<200); Estimated Glomerular Filt Rate > 60; HDL Cholesterol 42 mg/dL (>40); Potassium 3.9 mmol/L (3.3-5.1); Sodium 140 mmol/L (135-145); Total Protein 7.3 g/dL (6.5-8.0); Triglycerides 86 mg/dL (<150)
[2025-06-17 11:03] LABS: Free T4 (Free Thyroxine) 1.10 ng/dL (0.71-1.85); Prostate Specific Antigen 0.26 ng/mL (<0.05-4.0); Thyroid Stimulating Hormone 3.74 uIU/mL (0.32-4.0)
== END 2025-06-17 06:02 | disposition home or self-care (01) ==
LOC: HO.HMGCLDS 06:01
PROVIDERS: PCP Internal Medicine; Visit Provider Internal Medicine
DX: Z00.00 Encounter for general adult medical examination without abnormal findings (principal); N40.0 Benign prostatic hyperplasia without lower urinary tract symptoms; E78.00 Pure hypercholesterolemia, unspecified; E55.9 Vitamin D deficiency, unspecified; D64.9 Anemia, unspecified; E03.9 Hypothyroidism, unspecified; R30.0 Dysuria; Z12.5 Encounter for screening for malignant neoplasm of prostate
CPT/HCPCS: 36415; 80053; 80061; 81003; 82306; 84153; 84439; 84443; 85025

== ENCOUNTER 2025-06-20 17:21 | Outpatient (AMB) | payer OTHER, SELFPAY ==
--- NOTE | 2025-06-20 17:47 | MHC.PC.OV ---
Vital Signs 06/20/25 17:48 Height 5 ft 3 in Weight 151 lb 2 oz BMI 26.8 BP 128/74 Blood Pressure Location Lt brachial Position Sitting Pulse 70 Pulse Source Pulse Oximeter Temp 97.3 F Temp Source Temporal Artery Scan Pulse Oximetry (%) 97 Oxygen Delivery Method Room Air Intake Visit Reasons: annual exam Intake Note: Patient is here today for a physical. 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 Head Athletic Trainer/Strength Coach: Not Required per policy Accompanied by: Self / Same As Patient Allergies No Known Allergies (No Known Allergies*) Allergy (Verified 06/20/25 18:33) Medication List - Last Reconciled 06/20/25 by Isaias Valle MD albuterol sulfate 90 mcg/actuation (Ventolin HFA) 2 puffs inhalation Q6H PRN 30 days blood pressure monitor As directed cholecalciferol (vitamin D3) 25 mcg PO DAILY levothyroxine 25 mcg PO QAM lisinopril 10 mg PO DAILY [id number]-FA-vit K 18 mg iron-400 mcg-25 mcg (Adults Multivitamin) 1 tab PO DAILY triamcinolone acetonide 0.05% 1 appl topical TID PRN Tobacco use date assessed: 06/20/25 Dental Screening Dental Screen Date: 06/20/25 Did you have a dental visit in the last 12 months?: Yes Did you have a dental problem in the last 6 months where you did not have access to dental care?: No Was dental information given to patient?: Patient has dentist HPI annual exam HPI Details Patient comes in today for his annual physical examination - he was last seen over a year ago in November 2023 States that he feels okay He denies any headaches or dizziness Denies any chest pains, no shortness of breath No nausea/vomiting, no abdominal pain No change in bowel habits noted He denies any acute urinary symptoms He had his follow-up labs done a few days ago - to discuss his results He had his screening colonoscopy last done a couple of years ago in 2022 and his next colonoscopy will be due in 10 years (2032) [facility] Medical History (Updated 06/21/25 @ 04:58 by Isaias Valle MD) Essential hypertension RBBB Elevated LFTs Overweight (BMI 25.0-29.9) Acquired hypothyroidism Pure hypercholesterolemia Surgical History Hx of colonoscopy (~09/2022) Family History Father Liver cancer Mother Diabetes Social History (Updated 06/21/25 @ 04:53 by Isaias Valle MD) Housing: House Alcohol intake: current Alcohol intake frequency: a few times a week Comment: but mostly on weekends Patient Tobacco Use Status: Never used Tobacco Tobacco use type: Cigarette e-Cigarette/Vaping Use: Never Used Second Hand Smoke Exposure: No Substance Use Type: Marijuana service: No Current occupational status: employed Cognitive needs: No Hearing needs: No Vision needs: Yes (Glasses) Questionnaire PHQ-9 Over the last 2 weeks, how often have you been bothered by any of the following problems? 1. Little interest or pleasure in doing things: not at all 2. Feeling down, depressed, or hopeless: not at all 3. Trouble falling or staying asleep, or sleeping too much: not at all 4. Feeling tired or having little energy: not at all 5. Poor appetite or overeating: not at all 6. Feeling bad about yourself - or that you are a failure or have let yourself or your family down: not at all 7. Trouble concentrating on things, such as reading the newspaper or watching television: not at all 8. Moving or speaking so slowly that other people could have noticed. Or the opposite - being so fidgety or restless that you have been moving around a lot more than usual: not at all 9. Thoughts that you would be better off or of hurting yourself in some way: not at all Total score: 0 Depression Screening Interpretation: Negative Depression Screening Done: Yes 55382 - PHQ-9 Billing: Yes Source: Developed by Drs. Flip Hoang, Charity Flores, Bryson Gallegos and colleagues, with an educational sydni from [employer]. Thrive Questionnaire Date Thrive assessed: 06/20/25 I am a: Patient What is your living situation today?: I have a steady place to live Within the past 12 months, did the food you bought not last and you didn't have the money to get more?: I choose not to answer this question Within the past 12 months, did you worry whether your food would run out before you got money to buy more?: Never true Do you have trouble paying for medicines?: I choose not to answer this question Do you have trouble getting transportation to medical appointments?: No Do you have trouble paying your heating and electricity bill?: No Do you have trouble taking care of your child, family member or friend?: No Do you have trouble with day-to-day activities such as bathing, preparing meals, shopping, managing finances, etc.?: I choose not to answer this question Are you currently unemployed and looking for a job?: No Are you interested in more education?: I choose not to answer this question Please select the resources that you would like help with: None Currently or been in a relationship where the following occur: No concerns reported THRIVE Score: 0 AUDIT C Alcohol Use Questionnaire (AUDIT-C) 1. How often do you have a drink containing alcohol?: Monthly or less 2. How many drinks containing alcohol do you have on a typical day when you are drinking?: 1 or 2 Total Score: 1 Score Reviewed/Action Taken: Yes DANIEL-7 AMB Questionnaire DANIEL-7 Date DANIEL - 7 assessed: 06/20/25 Feeling nervous, anxious, or on edge: 0 = Not at all Not being able to stop or control worryin = Not at all Worrying too much about different things: 0 = Not at all Trouble relaxin = Not at all Being so restless that it is hard to sit still: 0 = Not at all Becoming easily annoyed or irritable: 0 = Not at all Feeling afraid as if something awful might happen: 0 = Not at all Total DANIEL-7 score (0-4 normal; 5-9 mild; 10-14 moderate; 15-21 severe): 0 Source: Developed by Drs. Flip Hoang, Charity Flores, Bryson Gallegos and colleagues, with an educational sydni from [employer]. Review of Systems Const Denies chills, Denies fatigue, Denies fever(s), Denies headache(s), Denies malaise and Denies weakness Eyes Denies blurry vision, Denies change in vision, Denies irritation and Denies itchy eyes ENT Denies dysphagia, Denies dizziness, Denies otalgia, Denies headache(s), Denies nasal congestion, Denies neck pain, Denies odynophagia and Denies sore throat Card Denies rapid heart rate, Denies irregular heart rhythm, Denies palpitations and Denies dyspnea Resp Denies chest congestion, Denies cough, Denies dyspnea and Denies wheezing GI Denies abdominal pain, Denies bloating, Denies constipation, Denies dysphagia, Denies heartburn, Denies diarrhea, Denies nausea, Denies odynophagia and Denies vomiting Denies hematuria, Denies difficulty urinating, Denies dysuria, Denies urinary frequency and Denies urinary urgency Musc Denies back pain, Denies arthralgias, Denies joint swelling, Denies muscle weakness and Denies neck pain Skin/Breast Denies change in pigmentation, Denies lesions, Denies rash and Denies unusual bruising Neuro Denies dizziness, Denies headache(s), Denies paresthesias and Denies weakness Endo Denies fatigue and Denies palpitations Aller/Immun Denies itchy eyes and Denies wheezing Physical exam (Primary Care) Vital Signs: Last Vital Signs Temp 97.3 F 06/20/25 17:48 Pulse 70 06/20/25 17:48 BP 128/74 06/20/25 17:48 Pulse Ox 97 06/20/25 17:48 Oxygen Delivery Method Room Air 06/20/25 17:48 BMI result Body Mass Index 26.8 Tobacco/Smoking Status: Tobacco use Status Tobacco use date assessed 06/20/25 06/20/25 17:54 Patient Tobacco Use Status Never used Tobacco 06/20/25 17:54 Tobacco use type Cigarette 06/20/25 17:54 e-Cigarette/Vaping Use Never Used 06/20/25 17:54 PHQ-9: PHQ-9 Score PHQ-9: Total score 0 06/20/25 18:36 Depression Screening Interpretation: Negative Thrive Assessment: Date of Thrive Assessment Date Thrive assessed 06/20/25 06/20/25 17:54 Currently or been in a relationship where the following occur: No concerns reported Const General: no acute distress, alert and awake Orientation/consciousness: patient oriented x3 HENMT Head: Yes normocephalic and Yes atraumatic Ears: external ears normal, TM's normal bilaterally and EAC's normal General nose exam: No nasal discharge present Face and sinus: Yes normal facial exam and Yes sinuses nontender Teeth and gingiva: dentition normal Throat: Yes posterior oropharynx normal and Yes tonsils normal (no TP congestion) Eyes Eyelids: Yes eyelids normal Conjunctivae: conjunctivae normal Pupils: Equal, round and reactive pupils present EOM: EOMs intact bilaterally Neck Neck: Yes no lymphadenopathy and Yes supple Thyroid: Thyroid normal Resp Auscultation: clear to auscultation bilaterally, no rales and no wheezes Cardio Rate: regular rate Rhythm: regular rhythm Heart sounds: no murmurs GI Palpation (GI): Soft to palpation, nontender and No hepatosplenomegaly present Auscultation: normal bowel sounds General: Yes no CVA tenderness Back/Spine/Pelvis Back: no CVA tenderness Thoracic/Lumbar Spine: thoracic and lumbar spine normal to inspection Skin Lesions: no lesions Rashes: no rashes Neuro General: patient oriented x3, moves all extremities, no focal motor deficits and CN's II-XI intact bilaterally Cranial nerves: Yes Equal, round and reactive pupils present Cognition (Neuro): normal cognition Gait exam (Neuro): Normal gait present Extrem General: Yes no clubbing, cyanosis or edema Results Reviewed Results Reviewed: Laboratory Tests 06/17/25 06:08 WBC 8.8 Hgb 15.9 Hct 46.1 Plt Count 196 Sodium 140 Potassium 3.9 Creatinine 0.87 Estimated GFR > 60 Fasting Glucose 91 Total Bilirubin 2.3 H AST 63 H ALT 102 H Triglycerides 86 Cholesterol 213 H LDL Cholesterol, Calc 154 H HDL Cholesterol 42 Prostate Specific Ag 0.26 25-OH Vitamin D Total 60.5 TSH 3.74 Free T4 1.10 Ur Specific Roby 1.020 Urine Protein Negative Urine Glucose (UA) Negative Urine Blood Negative Urine Nitrite Negative Ur Leukocyte Esterase Negative Coding Level of Care Code Est Pt Prev Care 40-64y(99672) Diagnoses Annual physical exam Z00.00 Pure hypercholesterolemia E78.00 Essential hypertension I10 Elevated LFTs R79.89 Hyperbilirubinemia E80.6 Acquired hypothyroidism E03.9 Vitamin D deficiency E55.9 Dermatitis L30.9 Overweight (BMI 25.0-29.9) E66.3 Additional Codes PHQ-9 - 94758 - PHQ-9 Billing: Yes ([id number]) Assessment & Plan Assessment & Plan (1) Annual physical exam: Code(s): Z00.00 - Encounter for general adult medical examination without abnormal findings Category: Medical Plan: Results of his labs done a few days ago reviewed and discussed with patient Is up-to-date with his colon cancer screening - he had his screening colonoscopy last done a couple of years ago in 2022 and his next colonoscopy will be due in 10 years (2032 (2) Pure hypercholesterolemia: Code(s): E78.00 - Pure hypercholesterolemia, unspecified Category: Medical Plan: Reinforced low-cholesterol diet Patient is cautioned that his cholesterol levels have increased from previous on his recent labs, with his LDL cholesterol going up from 138 mg/dL last year to his current 154 mg/dL Have reminded patient high cholesterol levels, along with high blood pressure levels can significantly increase his cardiovascular risks and he should try to get these corrected as soon as possible Will have patient recheck his labs and fasting lipids in 6 months for follow-up (3) Essential hypertension: Code(s): I10 - Essential (primary) hypertension Category: Medical Plan: Reinforced low-sodium diet - goal is systolic BP of 120 mm or less Continue Lisinopril 10 mg QD - Rx refilled Patient is reminded to continue monitoring his blood pressure regularly (4) Elevated LFTs: Code(s): R79.89 - Other specified abnormal findings of blood chemistry Category: Medical Plan: Have again cautioned patient that his LFTs are elevated on his recent labs and they have gone up further from previous Patient states that he used to drink alcohol a few times a week but now only drinks about 2-3 beers on weekends He is advised that with his LFTs increasing again lately, he should consider abstaining from alcohol completely at least until further notice Due to his LFTs rising significantly, we will send him for some additional labs, including a liver fibrosis panel and a complete hepatitis profile, for further evaluation Will also send him for abdominal ultrasound for further evaluation (5) Hyperbilirubinemia: Code(s): E80.6 - Other disorders of bilirubin metabolism Category: Medical Plan: Patient is serum bilirubin level have also increased from previous and are significantly elevated on his recent labs Patient denies any acute abdominal symptoms recently Will send him for some additional labs to check for indirect bilirubin level to help differentiate/identify possible sources for his elevated serum bilirubin He is also being sent for abdominal ultrasound for further evaluation of his elevated LFTs and this should also help further evaluate his high bilirubin level (6) Acquired hypothyroidism: Code(s): E03.9 - Hypothyroidism, unspecified Category: Medical Plan: His TFTs are normal on his recent labs Continue Levothyroxine 25 mcg QD Will have him recheck his TFTs in 6 months for follow-up (7) Vitamin D deficiency: Code(s): E55.9 - Vitamin D deficiency, unspecified Category: Medical Plan: Corrected Continue Vitamin D3 25 mcg QD (8) Dermatitis: Code(s): L30.9 - Dermatitis, unspecified Category: Medical Plan: Continue Triamcinolone acetonide 0.05% ointment apply BID to TID to affected areas PRN (9) Overweight (BMI 25.0-29.9): Code(s): E66.3 - Overweight Category: Medical Plan: Reinforced diet/exercise as tolerated/lose weight Plan Follow up in 6 months Orders: Orders Hepatitis A,B,C Profile 06/20/25 E80.6 - Other disorders of bilirubin metabolism, R79.89 - Other specified abnormal findings of blood chemistry Monotest 06/20/25 E80.6 - Other disorders of bilirubin metabolism, R79.89 - Other specified abnormal findings of blood chemistry Liver Fibrosis Pnl 06/20/25 E80.6 - Other disorders of bilirubin metabolism, R79.89 - Other specified abnormal findings of blood chemistry Complete Blood Count Auto Diff 6 Months D64.9 - Anemia, unspecified, R79.89 - Other specified abnormal findings of blood chemistry Comprehensive [place]. Panel Fast 6 Months E78.00 - Pure hypercholesterolemia, unspecified, R79.89 - Other specified abnormal findings of blood chemistry Lipid Panel 6 Months E78.00 - Pure hypercholesterolemia, unspecified, R79.89 - Other specified abnormal findings of blood chemistry Thyroid Stimulating Hormone 6 Months E03.9 - Hypothyroidism, unspecified Liver Panel 06/20/25 E80.6 - Other disorders of bilirubin metabolism, R79.89 - Other specified abnormal findings of blood chemistry US abdomen complete 06/20/25 E80.6 - Other disorders of bilirubin metabolism, R79.89 - Other specified abnormal findings of blood chemistry Free T4 (Free Thyroxine) 6 Months E03.9 - Hypothyroidism, unspecified Medications: Changed From lisinopril 10 mg PO DAILY 90 tabs 0RF I10 - Essential (primary) hypertension To lisinopril 10 mg PO DAILY 90 tabs 1RF 90 days I10 - Essential (primary) hypertension Refilled cholecalciferol (vitamin D3) 25 mcg PO DAILY 30 tabs 2RF E55.9 - Vitamin D deficiency, unspecified
[2025-06-20 17:48] VITALS: BP 128/74; PULSE 70; TEMP 36.3; O2SAT 97; BMI 26.8
== END 2025-06-20 18:53 | disposition home or self-care (01) ==
LOC: HO.HMCH 17:22
PROVIDERS: PCP Internal Medicine; Visit Provider Internal Medicine
DX: Z00.00 Encounter for general adult medical examination without abnormal findings (principal); E78.00 Pure hypercholesterolemia, unspecified; I10 Essential (primary) hypertension; R79.89 Other specified abnormal findings of blood chemistry; E80.6 Other disorders of bilirubin metabolism; E03.9 Hypothyroidism, unspecified; E55.9 Vitamin D deficiency, unspecified; L30.9 Dermatitis, unspecified; E66.3 Overweight

== ENCOUNTER → 2025-06-20 17:21 | Outpatient (BNVA) | payer OTHER, SELFPAY | PROVIDERS: PCP Internal Medicine; Visit Provider Internal Medicine | DX: Z00.00 Encounter for general adult medical examination without abnormal findings (principal); E78.00 Pure hypercholesterolemia, unspecified; I10 Essential (primary) hypertension; R79.89 Other specified abnormal findings of blood chemistry; E80.6 Other disorders of bilirubin metabolism; E03.9 Hypothyroidism, unspecified; E55.9 Vitamin D deficiency, unspecified; L30.9 Dermatitis, unspecified; E66.3 Overweight; Z68.26 Body mass index [BMI] 26.0-26.9, adult | CPT/HCPCS: 96127 ==